=== PATIENT | female | born 1985 | race Caucasian/White ===

== ENCOUNTER 2022-04-27 08:23 | Emergency (ER) | payer MEDICAID ==
[~2022-04-27] VITALS: Ht 160 cm; Wt 64.9 kg
[2022-04-27 08:31] VITALS: BP 143/87
--- NOTE | 2022-04-27 08:34 | NUR ---
PT AMBULATED TO BED 02.
--- NOTE | 2022-04-27 08:40 | NUR ---
37/F WALKED IN C/O HEADACHE ONSET 2 DAYS ACCOMPANIED BY NAUSEA AND VOMITING THAT GETS WORSE WITH LIGHT AND SOUND. STATES TAKING MOTRING 800MG WITH SLIGHT RELIEF. DENIES FALL OR TRAUMA TO HEAD. AAOX4, AMBULATORY, ON MONITOR, URINE COLLECTED NKA PMH: DENIES
[2022-04-27] MEDS ORDERED: PROCHLORPERAZINE 10 MG/2 ML VIAL IVP ONE (08:55)
[2022-04-27] MEDS ORDERED: NACL 0.9% 1,000 ML IV ONE (09:00)
[2022-04-27 09:16] VITALS: BP 135/93
--- NOTE | 2022-04-27 09:17 | NUR ---
IV ESTABLISHED ON R AC WITH 20G
--- NOTE | 2022-04-27 10:14 | NUR ---
STATES DECREASED PAIN. AMBULATED TO RESTROOM
[2022-04-27] MEDS ORDERED: IBUP-2213 PO (10:20)
--- NOTE | 2022-04-27 10:25 | NUR ---
Patient discharged with v/s stable. Written and verbal after care instructions given and explained. Patient verbalized understanding. Ambulatory with steady gait. All questions addressed prior to discharge. Advised to follow up with PMD.
== END 2022-04-27 10:25 | disposition home or self-care (01) ==
LOC: MED 08:23
DX: R51.9 Headache, unspecified (principal); G43.909 Migraine, unspecified, not intractable, without status migrainosus; R11.2 Nausea with vomiting, unspecified; Z79.899 Other long term (current) drug therapy
CPT/HCPCS: 81025; 96374; 99283; J0780; J7030